=== PATIENT | female | born 1970 | race Caucasian/White ===

== ENCOUNTER 2017-11-25 01:21 | Emergency (ER) | payer OTHER ==
[~2017-11-25] VITALS: Ht 167.6 cm; Wt 102.5 kg
[2017-11-25 01:21] VITALS: BP 127/74
--- NOTE | 2017-11-25 01:51 | ED.ADGEN ---
Adult General [facility] HPI Patient is a 47 year old female who presents with right hand and thumb injury. 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 It required multiple staff members and security to restrain the patient for his own safety and the safety of staff. At some point during the restraint process, the patient sustained injury to the left hand and thumb. The incident was 24 hours earlier. Since then , she has had ongoing pain. The pain is primarily over the thenar eminence. Pain is worse with movement of the thumb, particularly with abduction. She has no numbness or tingling. She did not sustain additional injury. She has been taking Aleve at home for control of the symptoms. Review of Systems Review of Systems Constitutional: Denies fever or chills Respiratory: Denies cough or shortness of breath Cardiovascular: No additional information not addressed in HPI Musculoskeletal: as documented in HPI. No additional MSK complaints Integument: no break in skin Neurologic: Denies neuro complaints All other systems were reviewed and found to be within normal limits, except as documented in this note. Allergies Allergies Allergies Coded Allergies Type Severity Reaction Last Updated Verified No Known Drug Allergies 11/25/17 No Physical Exam Physical Exam Constitutional: Well developed, well nourished, no acute distress, non-toxic appearance HENT: Normocephalic, atraumatic, oropharynx moist Eyes: normal conjunctiva Neck: Normal range of motion Skin: Warm, dry, no abrasion Extremities: Gross deformity to the area in question. There is tenderness to palpation over the abductor muscles of the thumb. There is mild pain with abduction as well but the pain is worse with abduction. Abductor muscles are 5 over 5 motor strength. There is no loss of sensation distally. There are radial pulses. Capillary refill is less than 2 seconds. Neurologic: Alert and oriented X 3, normal motor function Psychologic: Affect normal EKG EKG [] Radiology/Procedures Radiology/Procedures No acute fracture seen Course & Med Decision Making Course & Med Decision Making Pertinent Labs and Imaging studies reviewed. (See chart for details) Patient is seen and examined in the ER as part of recommendations for work- related injury. Physical exam findings consistent with strain of the hand/thumb , particularly the intrinsic thenar eminence muscles. Tendinous injury is not entirely ruled out as this would require MRI. No loss of strength is appreciated however on exam. Plan today is to place in thumb spica splint for rest/healing. She is advised to take NSAID of her choice at home. Wear splint over the next 5-7 days. May remove as needed for ADL's. F/u with hospital's occupational health clinic in 7-10 days. Final Impression Final Impression Strain of Abductor muscles of thumb René Disclaimer Dragon Disclaimer This electronic medical record was generated, in whole or in part, using a voice recognition dictation system. LISS HERNANDEZ DO November 25, 2017 01:51
--- NOTE | 2017-11-25 07:49 | RAD ---
Left hand, 3 views, 11/25/2017: HISTORY: Injury No acute fracture or dislocation is identified. The soft tissues are unremarkable. IMPRESSION: No acute bony abnormality is detected. Electronically signed by: Robert Farfan MD (11/25/2017 7:46 AM) [facility]
== END 2017-11-25 01:45 | disposition home or self-care (01) ==
LOC: ER 01:21
DX: S56.311A Strain of extensor or abductor muscles, fascia and tendons of right thumb at forearm level, initial encounter (principal); W50.0XXA Accidental hit or strike by another person, initial encounter; Y93.89 Activity, other specified; Y99.0 Civilian activity done for income or pay; Y92.89 Other specified places as the place of occurrence of the external cause
CPT/HCPCS: 73130; 99284

== ENCOUNTER 2018-08-17 22:18 | Emergency (ER) | payer OTHER ==
[~2018-08-17] VITALS: Ht 167.6 cm; Wt 102.5 kg
[2018-08-17 22:20] VITALS: BP 121/82
--- NOTE | 2018-08-17 22:22 | ED.ADGEN ---
Past History Past Medical History: No Pertinent History Past Surgical History: No Surgical History Alcohol Use: Rarely Drug Use: None Adult General Chief Complaint Chief Complaint ".. I was coming around the car.. and I slipped on the ice... the snow removed vidhya helped me up and get into the Emergency room.. I kind hit my head on Lt... I did not go out... but still dizzy.. the main thing is this Rt. knee popped.. and twisted bad... 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 Pt. complaints of contusion Lt posterior scalp and twisting injury to Lt Knee. Pt. denies loss of consciousness. Complaints of nausea and dizzy. Patient is complaining of unable to bear weight without pain in right knee.. Patient is able to do straight leg lift. But obvious edema of right knee. Distal neurovascular right foot is equal to left foot. Patient does have crepitation with movement of right knee. Does have pain in collateral ligaments. In increase anterior draw as compared to left knee. Patient denies other injury at this time. Review of Systems Review of Systems Constitutional: Denies fever or chills [] Eyes: Denies change in visual acuity, redness, or eye pain [] HENT: Denies nasal congestion or sore throat [] complaints of head injury Respiratory: Denies cough or shortness of breath [] Cardiovascular: No additional information not addressed in HPI [] GI: Denies abdominal pain, nausea, vomiting, bloody stools or diarrhea [] : Denies dysuria or hematuria [] Musculoskeletal: Denies back pain or joint pain [] complaints of right knee pain Integument: Denies rash or skin lesions [] Neurologic: Denies headache, focal weakness or sensory changes [] Endocrine: Denies polyuria or polydipsia [] All other systems were reviewed and found to be within normal limits, except as documented in this note. Family History Family History Noncontributory to presentation Current Medications Current Medications Current Medications Medications (Trade) Dose Ordered Sig/Chaparro Start Time Stop Time Status Last Admin Dose Admin Acetaminophen (Tylenol) 1,000 mg 1X ONCE 08/17/18 23:00 08/17/18 23:01 DC 08/17/18 00:40 1,000 MG Lactated Ringer's 1,000 ml @ 1,000 mls/hr Q1H 08/17/18 22:37 08/17/18 23:36 DC Ondansetron HCl (Zofran) 8 mg 1X ONCE 08/17/18 23:15 08/17/18 23:16 DC 08/17/18 00:42 8 MG Allergies Allergies Allergies Coded Allergies Type Severity Reaction Last Updated Verified No Known Drug Allergies 11/25/17 No Physical Exam Physical Exam Constitutional: in acute distress, pale in appearance. [] HENT: Normocephalic, , bilateral external ears normal, oropharynx moist, no oral exudates, nose normal. Has contusion to posterior left scalp area. Eyes: PERRLA, EOMI, conjunctiva normal, no discharge. [] Neck: Normal range of motion, no tenderness, supple, no stridor. [] Cardiovascular:Heart rate regular rhythm, no murmur [] Lungs & Thorax: Bilateral breath sounds clear to auscultation [] Abdomen: Bowel sounds normal, soft, no tenderness, no masses, no pulsatile masses. [] Skin: Warm, dry, no erythema, no rash. [] Back: No tenderness, no CVA tenderness. [] Extremities: No tenderness, no cyanosis, no clubbing, ROM intact, no edema. [] Except findings in right knee. DTRs +2 left knee and brachial. Operations General Agent equal. Limited abiltiy to Ambulate due to pain.. Neurologic: Alert and oriented X 3, normal motor function, normal sensory function, no focal deficits noted. [] Psychologic: Affect anxious, judgement normal, mood depressed. Tearful. Current Patient Data Vital Signs Vital Signs Date Time Temp Pulse Resp B/P (MAP) Pulse Ox O2 Delivery O2 Flow Rate FiO2 08/17/18 22:20 97.6 86 16 96 Room Air Lab Results Laboratory Tests Test 08/17/18 23:59 08/18/18 00:15 White Blood Count 9.1 x10^3/uL (4.0-11.0) Red Blood Count 4.78 x10^6/uL (3.50-5.40) Hemoglobin 14.5 g/dL (12.0-15.5) Hematocrit 43.6 % (36.0-47.0) Mean Corpuscular Volume 91 fL (79-100) Mean Corpuscular Hemoglobin 30 pg (25-35) Mean Corpuscular Hemoglobin Concent 33 g/dL (31-37) Red Cell Distribution Width 13.4 % (11.5-14.5) Platelet Count 239 x10^3/uL (140-400) Neutrophils (%) (Auto) 76 % (31-73) H Lymphocytes (%) (Auto) 18 % (24-48) L Monocytes (%) (Auto) 5 % (0-9) Eosinophils (%) (Auto) 1 % (0-3) Basophils (%) (Auto) 1 % (0-3) Neutrophils # (Auto) 6.9 x10^3uL (1.8-7.7) Lymphocytes # (Auto) 1.7 x10^3/uL (1.0-4.8) Monocytes # (Auto) 0.4 x10^3/uL (0.0-1.1) Eosinophils # (Auto) 0.1 x10^3/uL (0.0-0.7) Basophils # (Auto) 0.1 x10^3/uL (0.0-0.2) Prothrombin Time 9.7 SEC (9.4-11.4) Prothrombin Time INR 1.0 (0.9-1.1) PTT 27 SEC (23-33) Sodium Level 141 mmol/L (136-145) Potassium Level 3.8 mmol/L (3.5-5.1) Chloride Level 104 mmol/L (98-107) Carbon Dioxide Level 24 mmol/L (21-32) Anion Gap 13 (6-14) Blood Urea Nitrogen 20 mg/dL (7-20) Creatinine 0.9 mg/dL (0.6-1.0) Estimated GFR (Cockcroft-Gault) 66.5 Glucose Level 88 mg/dL (70-99) Calcium Level 8.9 mg/dL (8.5-10.1) Total Bilirubin 0.4 mg/dL (0.2-1.0) Direct Bilirubin 0.1 mg/dL (0.0-0.2) Aspartate Amino Transferase (AST) 29 U/L (15-37) Alanine Aminotransferase (ALT) 38 U/L (14-59) Alkaline Phosphatase 112 U/L (46-116) Creatine Kinase 53 U/L (26-192) Troponin I Quantitative < 0.017 ng/mL (0-0.055) Total Protein 7.6 g/dL (6.4-8.2) Albumin 3.9 g/dL (3.4-5.0) Urine Collection Type Unknown Urine Color Yellow Urine Clarity Clear Urine pH 6.5 Urine Specific [place] 1.015 Urine Protein Neg (NEG-TRACE) Urine Glucose (UA) Neg mg/dL (NEG) Urine Ketones (Stick) Trace mg/dL (NEG) Urine Blood Neg (NEG) Urine Nitrite Neg (NEG) Urine Bilirubin Neg (NEG) Urine Urobilinogen Dipstick 0.2 mg/dL (0.2 mg/dL) Urine Leukocyte Esterase Neg (NEG) Urine RBC Occ /HPF (0-2) Urine WBC Occ /HPF (0-4) Urine Squamous Epithelial Cells Few /LPF Urine Bacteria Few /HPF (0-FEW) Urine Mucus Slight /LPF EKG EKG [] Radiology/Procedures Radiology/Procedures My interpretation of CT of head and neck shows no obvious shift, mass, edema, bleed, or fracture. No obvious fracture or disc or malalignment. My interpretation of chest x-ray shows no acute cardiopulmonary findings. My interpretation of right knee increased soft tissue edema. There may be a small fracture on proximal fibular head .[] Course & Med Decision Making Course & Med Decision Making Pertinent Labs and Imaging studies reviewed. (See chart for details) Ice, elevation, rest, Barry wrap, crutches, Tylenol and ibuprofen for pain. Follow -up primary care. No need follow-up orthopedics. Return if any emergent changes.. Head injury precautions given. [] Final Impression Final Impression 1. Head contusion 2. Right knee strain [] and suspect ligament and cartilage injury Dragon Disclaimer Dragon Disclaimer This electronic medical record was generated, in whole or in part, using a voice recognition dictation system. Dragon Disclaimer This chart was dictated in whole or in part using Voice Recognition software in a busy, high-work load, and often noisy Emergency Department environment. It may contain unintended and wholly unrecognized errors or omissions. Discharge Summary Visit Information Final Diagnosis Problems Medical Problems: (1) Head injury due to trauma Status: Acute (2) Head injury, acute, without loss of consciousness Status: Acute (3) Knee buckling Status: Acute (4) Knee cartilage, torn, right Status: Acute Brief Hospital Course Allergies Allergies Coded Allergies Type Severity Reaction Last Updated Verified No Known Drug Allergies 11/25/17 No Vital Signs Vital Signs Date Time Temp Pulse Resp B/P (MAP) Pulse Ox O2 Delivery O2 Flow Rate FiO2 08/17/18 22:20 97.6 86 16 96 Room Air Lab Results Laboratory Tests Test 08/17/18 23:59 08/18/18 00:15 White Blood Count 9.1 x10^3/uL (4.0-11.0) Red Blood Count 4.78 x10^6/uL (3.50-5.40) Hemoglobin 14.5 g/dL (12.0-15.5) Hematocrit 43.6 % (36.0-47.0) Mean Corpuscular Volume 91 fL (79-100) Mean Corpuscular Hemoglobin 30 pg (25-35) Mean Corpuscular Hemoglobin Concent 33 g/dL (31-37) Red Cell Distribution Width 13.4 % (11.5-14.5) Platelet Count 239 x10^3/uL (140-400) Neutrophils (%) (Auto) 76 % (31-73) Lymphocytes (%) (Auto) 18 % (24-48) Monocytes (%) (Auto) 5 % (0-9) Eosinophils (%) (Auto) 1 % (0-3) Basophils (%) (Auto) 1 % (0-3) Neutrophils # (Auto) 6.9 x10^3uL (1.8-7.7) Lymphocytes # (Auto) 1.7 x10^3/uL (1.0-4.8) Monocytes # (Auto) 0.4 x10^3/uL (0.0-1.1) Eosinophils # (Auto) 0.1 x10^3/uL (0.0-0.7) Basophils # (Auto) 0.1 x10^3/uL (0.0-0.2) Prothrombin Time 9.7 SEC (9.4-11.4) Prothromb Time International Ratio 1.0 (0.9-1.1) Activated Partial Thromboplast Time 27 SEC (23-33) Sodium Level 141 mmol/L (136-145) Potassium Level 3.8 mmol/L (3.5-5.1) Chloride Level 104 mmol/L (98-107) Carbon Dioxide Level 24 mmol/L (21-32) Anion Gap 13 (6-14) Blood Urea Nitrogen 20 mg/dL (7-20) Creatinine 0.9 mg/dL (0.6-1.0) Estimated GFR (Cockcroft-Gault) 66.5 Glucose Level 88 mg/dL (70-99) Calcium Level 8.9 mg/dL (8.5-10.1) Total Bilirubin 0.4 mg/dL (0.2-1.0) Direct Bilirubin 0.1 mg/dL (0.0-0.2) Aspartate Amino Transf (AST/SGOT) 29 U/L (15-37) Alanine Aminotransferase (ALT/SGPT) 38 U/L (14-59) Alkaline Phosphatase 112 U/L (46-116) Creatine Kinase 53 U/L (26-192) Troponin I Quantitative < 0.017 ng/mL (0-0.055) Total Protein 7.6 g/dL (6.4-8.2) Albumin 3.9 g/dL (3.4-5.0) Urine Collection Type Unknown Urine Color Yellow Urine Clarity Clear Urine pH 6.5 Urine Specific [place] 1.015 Urine Protein Neg (NEG-TRACE) Urine Glucose (UA) Neg mg/dL (NEG) Urine Ketones (Stick) Trace mg/dL (NEG) Urine Blood Neg (NEG) Urine Nitrite Neg (NEG) Urine Bilirubin Neg (NEG) Urine Urobilinogen Dipstick 0.2 mg/dL (0.2 mg/dL) Urine Leukocyte Esterase Neg (NEG) Urine RBC Occ /HPF (0-2) Urine WBC Occ /HPF (0-4) Urine Squamous Epithelial Cells Few /LPF Urine Bacteria Few /HPF (0-FEW) Urine Mucus Slight /LPF Brief Hospital Course 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 knee. To Follow up work comp. Discharge Information Condition at Discharge: Stable Disposition/Orders: D/C to Home Dischare Medications Current Medications Lactated Ringer's 1,000 ml @ 1,000 mls/hr Q1H IV ; Start 08/17/18 at 22:37; Stop 08/17/18 at 23:36; Status DC Acetaminophen (Tylenol) 1,000 mg 1X ONCE PO Last administered on 08/17/18at 00: 40; Admin Dose 1,000 MG; Start 08/17/18 at 23:00; Stop 08/17/18 at 23:01; Status DC Ondansetron HCl (Zofran) 8 mg 1X ONCE IV Last administered on 08/17/18at 00:42 ; Admin Dose 8 MG; Start 08/17/18 at 23:15; Stop 08/17/18 at 23:16; Status DC MARIELLE PARDO MD Aug 17, 2018 22:22
[2018-08-17] MEDS ORDERED: IV RINGERS SOLUTION,LACTATED 1,000 ML IV SCH (22:37)
[2018-08-17] MEDS ORDERED: ACETAMINOPHEN 500 MG TABLET PO ONE (23:00)
[2018-08-17] MEDS ORDERED: ONDANSETRON PF 4 MG/2 ML VIAL. IV ONE (23:15)
--- NOTE | 2018-08-17 23:39 | RAD ---
PQRS Compliance Statement: One or more of the following individualized dose reduction techniques were utilized for this examination: 1. Automated exposure control 2. Adjustment of the mA and/or kV according to patient size 3. Use of iterative reconstruction technique CT head and cervical spine without contrast 08/17/2018 10:59 PM INDICATION: Fall, hit left side of head on ice. Near-syncope. COMPARISON: None available TECHNIQUE: Multiple axial CT images of the head were obtained from skull base through the vertex without intravenous contrast. Multiple axial CT images of the cervical spine were obtained without intravenous contrast. Coronal and sagittal reformats are provided. FINDINGS: Head: Ventricles, sulci and basal cisterns are within normal limits. There is no hydrocephalus. Read-white matter differentiation is normal. There is no acute intracranial hemorrhage. There is no mass, mass effect or midline shift. Posterior fossa is normal in appearance. Visualized portions of the orbits are normal. Paranasal sinuses are well aerated. Mastoid air cells are well aerated. Scalp and calvaria are normal. Cervical spine: Alignment of the cervical spine is normal. Skull base is intact. Craniocervical junction is normal in appearance. Atlantoaxial articulation is normal. Vertebral body heights are maintained without evidence for acute fracture. Facet joints are within normal limits. Mild disc height loss is identified at C5-C6. No significant osseous neural foraminal stenosis. No significant osseous spinal canal stenosis. Transverse foramen are intact. There is no prevertebral soft tissue swelling. Thyroid gland is normal in appearance. Visualized portions of the lung apices are normal without evidence for suspicious pulmonary nodule or infiltrate. IMPRESSION: 1. No acute intracranial hemorrhage. 2. No acute fracture or malalignment of the cervical spine. Electronically signed by: Za Cuevas MD (08/17/2018 11:36 PM) [facility]
[2018-08-18 00:24] LABS: BASO # 0.1 x10^3/uL (0.0-0.2); BASO % 1 % (0-3); EOS # 0.1 x10^3/uL (0.0-0.7); EOS % 1 % (0-3); HEMATOCRIT 43.6 % (36.0-47.0); HEMOGLOBIN 14.5 g/dL (12.0-15.5); LYMPH # 1.7 x10^3/uL (1.0-4.8); LYMPH % 18 % (24-48); MEAN CORPUSCULAR HEMOGLOBIN 30 pg (25-35); MEAN CORPUSCULAR HGB CONC 33 g/dL (31-37); MEAN CORPUSCULAR VOLUME 91 fL (79-100); MONO # 0.4 x10^3/uL (0.0-1.1); MONO % 5 % (0-9); NEUT # 6.9 x10^3uL (1.8-7.7); NEUT % 76 % (31-73); PLATELET COUNT 239 x10^3/uL (140-400); RED BLOOD COUNT 4.78 x10^6/uL (3.50-5.40); RED CELL DISTRIBUTION WIDTH 13.4 % (11.5-14.5); WHITE BLOOD COUNT 9.1 x10^3/uL (4.0-11.0)
[2018-08-18 00:33] LABS: ALBUMIN 3.9 g/dL (3.4-5.0); CALCIUM 8.9 mg/dL (8.5-10.1); CREATININE 0.9 mg/dL (0.6-1.0); DIRECT BILIRUBIN 0.1 mg/dL (0.0-0.2); GFR 66.5; POTASSIUM 3.8 mmol/L (3.5-5.1); TOTAL BILIRUBIN 0.4 mg/dL (0.2-1.0); TOTAL PROTEIN 7.6 g/dL (6.4-8.2)
[2018-08-18 00:46] LABS: BACTERIA,URINE FEW /HPF (0-FEW); BILIRUBIN,URINE NEG (NEG); CLARITY,URINE CLEAR; COLOR,URINE YELLOW; GLUCOSE,URINE NEG (NEG); NITRITE,URINE NEG (NEG); RBC,URINE OCC /HPF (0-2); UROBILINOGEN,URINE 0.2 mg/dL (0.2 mg/dL); WBC,URINE OCC /HPF (0-4)
[2018-08-18 00:47] LABS: SQUAMOUS EPITHELIAL CELL,UR FEW /LPF
--- NOTE | 2018-08-18 08:06 | RAD ---
Right knee, 3 views, 08/17/2018: HISTORY: Fall, knee injury No acute fracture or dislocation is identified. No significant arthritic change is evident. There is suggestion of a small joint effusion. IMPRESSION: No acute bony abnormality is detected. Electronically signed by: Robert Farfan MD (08/18/2018 8:03 AM) [facility]
--- NOTE | 2018-08-18 08:06 | RAD ---
Portable chest, 08/17/2018: HISTORY: Fall, nausea, near syncope The heart size is normal. The lungs are clear. There is no evidence of pleural fluid. IMPRESSION: No acute cardiopulmonary abnormality is detected. Electronically signed by: Robert Farfan MD (08/18/2018 8:04 AM) [facility]
--- NOTE | 2018-08-18 11:37 | EKG ---
[address] [address] Test Date: 2018-08-17 Test Time: 23:24:21 Pat Name: ROCHELLE DE LA CRUZ Department: Room: Gender: F [employer]: : [id number] Requested By: MARIELLE PARDO Order Number: [id number] Reading MD: Measurements Intervals [place] Rate: 83 P: 24 MS: 178 QRS: -6 QRSD: 76 T: 37 QT: 376 QTc: 448 Interpretive Statements SINUS RHYTHM LEFTWARD AXIS NO SPECIFIC ECG ABNORMALITIES RI6.01 No previous ECG available for comparison
== END 2018-08-18 02:25 | disposition home or self-care (01) ==
LOC: ER 22:18
DX: S83.91XA Sprain of unspecified site of right knee, initial encounter (principal); S86.811A Strain of other muscle(s) and tendon(s) at lower leg level, right leg, initial encounter; S00.03XA Contusion of scalp, initial encounter; M25.361 Other instability, right knee; R42 Dizziness and giddiness; R55 Syncope and collapse; W00.0XXA Fall on same level due to ice and snow, initial encounter; Y93.89 Activity, other specified; Y92.89 Other specified places as the place of occurrence of the external cause; Y99.8 Other external cause status
CPT/HCPCS: 36415; 70450; 71045; 72125; 73564; 80048; 80076; 81001; 82550; 84484; 85025; 85610; 85730; 93005; 96374; 99284; J2405

== ENCOUNTER 2020-01-06 11:25 | Emergency (ER) | payer OTHER ==
[~2020-01-06] VITALS: Ht 167.6 cm; Wt 100.0 kg
[2020-01-06 11:38] VITALS: BP 122/67
[2020-01-06] MEDS ORDERED: TRIA15OI9 TP (11:53)
--- NOTE | 2020-01-06 11:53 | PHYS DOC ---
Past History Past Medical History: No Pertinent History Past Surgical History: Other Alcohol Use: None Drug Use: None General Adult EDM: Chief Complaint: SKIN PROBLEM HPI: HPI: Patient is a 49-year-old female who presented to ER today for evaluation of poison kathleen all over her body. Patient says [place], she got poison kathleen on her left forearm. The rash then spread to her neck, her chest. Patient was seen in the ER here 4 days ago, was prescribed prednisone p.o. But she denies any better. Review of Systems: Review of Systems: Constitutional: Denies fever or chills Eyes: Denies change in visual acuity HENT: Denies nasal congestion or sore throat Respiratory: Denies cough or shortness of breath Cardiovascular: Denies chest pain or edema GI: Denies abdominal pain, nausea, vomiting, bloody stools or diarrhea : Denies dysuria Musculoskeletal: Denies back pain or joint pain Integument: Positive for itchy rash on body Neurologic: Denies headache, focal weakness or sensory changes Endocrine: Denies polyuria or polydipsia Lymphatic: Denies swollen glands Psychiatric: Denies depression or anxiety Heart Score: Risk Factors: Risk Factors: DM, Current or recent (<one month) smoker, HTN, HLP, family history of CAD, obesity. Risk Scores: Score 0 - 3: 2.5% MACE over next 6 weeks - Discharge Home Score 4 - 6: 20.3% MACE over next 6 weeks - Admit for Clinical Observation Score 7 - 10: 72.7% MACE over next 6 weeks - Early Invasive Strategies Allergies: Allergies: Allergies Coded Allergies Type Severity Reaction Last Updated Verified No Known Drug Allergies 11/25/17 No Physical Exam: PE: Constitutional: Well developed, well nourished, no acute distress, non-toxic appearance. [] HENT: Normocephalic, atraumatic, bilateral external ears normal, oropharynx moist, no oral exudates, nose normal. [] Eyes: PERRLA, EOMI, conjunctiva normal, no discharge. [] Neck: Normal range of motion, no tenderness, supple, no stridor. [] Cardiovascular:Heart rate regular rhythm, no murmur [] Lungs & Thorax: Bilateral breath sounds clear to auscultation [] Abdomen: Bowel sounds normal, soft, no tenderness, no masses, no pulsatile masses. [] Skin: Warm, dry, weeping, blistering rash on left forearm and neck and trunk area. [] Back: No tenderness, no CVA tenderness. [] Extremities: No tenderness, no cyanosis, no clubbing, ROM intact, no edema. [] Neurologic: Alert and oriented X 3, normal motor function, normal sensory function, no focal deficits noted. [] Psychologic: Affect normal, judgement normal, mood normal. [] Current Patient Data: Vital Signs: Vital Signs Date Time Temp Pulse Resp B/P (MAP) Pulse Ox O2 Delivery O2 Flow Rate FiO2 01/06/20 11:38 98.0 76 16 122/67 (85) 96 Room Air EKG: EKG: [] Radiology/Procedures: Radiology/Procedures: [] Course & Med Decision Making: Course & Med Decision Making Pertinent Labs and Imaging studies reviewed. (See chart for details) [] Dragon Disclaimer: [employer] Disclaimer: This electronic medical record was generated, in whole or in part, using a voice recognition dictation system. Departure Departure: Impression: Primary Impression: Poison kathleen dermatitis Disposition: HOME/RESIDENCE PRIOR TO ADM Condition: STABLE Referrals: BERNADETTE HOWARD (PCP) follow up with your doctor next week Patient Instructions: Poison Kathleen Additional Instructions: Thank you for visiting our Emergency Department. We appreciate you trusting us with your care. If any additional problems come up don't hesitate to return to visit us. Please follow up with your primary care provider so they can plan additional care if needed and know about the problem that you had. If symptoms worsen come back to the Emergency Department. Any concerning symptoms that start such as chest pain, shortness of air, weakness or numbness on one side of the body, running high fevers or any other concerning symptoms return to the ER. Scripts Triamcinolone Acetonide (TRIAMCINOLONE ACETONIDE 0.5% OINT) 15 Gm Oint...g. 1 ANNA TP BID for poison kathleen, #60 GM 2 Refills apply to affected area(s) Prov: BABAK COPPOLA DO 01/06/20 Justification of Admission: Justification of Admission: Justification of Admission Dx: N/A BABAK COPPOLA DO Jan 06, 2020 11:53
[2020-01-06] MEDS ORDERED: methylPREDNISolone SOD SUCC PF 125 MG/2 ML VIAL. IM ONE (12:00)
== END 2020-01-06 12:09 | disposition home or self-care (01) ==
LOC: ER 11:25
DX: L23.7 Allergic contact dermatitis due to plants, except food (principal)
CPT/HCPCS: 96372; 99283; J2930

== ENCOUNTER → 2020-02-29 | Outpatient (CLI) | payer OTHER ==
[~2020-02-29] MED LIST: TRIA15OI9 TP
== END | disposition home or self-care (01) ==
LOC: LAB 09:50
PROVIDERS: ATTEND Internal Medicine Cardiovascular Disease
DX: Z20.828 Contact with and (suspected) exposure to other viral communicable diseases (principal)
CPT/HCPCS: U0003-CS

== ENCOUNTER 2020-07-02 06:34 | Emergency (ER) | payer OTHER ==
[~2020-07-02] VITALS: Ht 166.4 cm; Wt 91.8 kg
--- NOTE | 2020-07-02 07:30 | PHYS DOC ---
Past History Past Medical History: No Pertinent History Past Surgical History: Other Alcohol Use: None Drug Use: None General Adult EDM: Chief Complaint: KNEE INJURY HPI: HPI: Patient is a 50-year-old female coming in for right knee pain and swelling since yesterday. Patient was walking on ice when it slid and she felt her knee twist back and forth multiple times but did not fall. Has had increasing pain. Has a history of prior fall and injury to that knee 2 years ago, resulted in arthro scoping and removal of bone fragments. Also had a meniscal injury at that time. Patient states she had felt a pop and has had a few more pops with walking. No other injuries, otherwise has been well. Review of Systems: Review of Systems: All other systems within normal limits except for as noted in the HPI Allergies: Allergies: Allergies Coded Allergies Type Severity Reaction Last Updated Verified No Known Drug Allergies 07/02/20 No Physical Exam: PE: Constitutional: Well developed, well nourished, no acute distress, non-toxic appearance. [] HENT: Normocephalic, atraumatic, bilateral external ears normal, nose normal. [] Eyes: PERRLA, conjunctiva normal, no discharge. [] Neck: No rigidity, supple, no stridor. [] Cardiovascular: Regular rate and rhythm, brisk cap refill [] Lungs & Thorax: Non labored symmetric respirations, no tachypnea or respiratory distress [] Abdomen: Soft, nondistended. Skin: Warm, dry, no erythema, no rash. [] Back: No tenderness, no CVA tenderness. [] Extremities: No deformities, range of motion grossly intact, no lower extremity edema, joint line tenderness, mild effusion of right knee [] Neurologic: Alert and oriented X 3, no focal deficits noted. [] Psychologic: Affect normal, judgement normal, mood normal. [] EKG: EKG: [] Radiology/Procedures: Radiology/Procedures: Right knee 3 views INDICATION: Twisting injury FINDINGS: AP, oblique and lateral views of the right knee showing tiny ossific density superficial to the lateral femoral condyle on the oblique view that is equivocal for small avulsion fracture off the lateral femoral condyle. The alignment is anatomic. Underlying degenerative changes with osteophytic spurring, subchondral sclerosis and joint space are most conspicuous in the lateral compartment as well as to a lesser extent in the patellofemoral compartment. IMPRESSION: Possible avulsion fracture of the lateral femoral condyle and underlying degen erative changes in the lateral and patellofemoral compartments right knee. Consider CT or MRI in further evaluation if clinically warranted. [] Heart Score: Risk Factors: Risk Factors: DM, Current or recent (<one month) smoker, HTN, HLP, family history of CAD, obesity. Risk Scores: Score 0 - 3: 2.5% MACE over next 6 weeks - Discharge Home Score 4 - 6: 20.3% MACE over next 6 weeks - Admit for Clinical Observation Score 7 - 10: 72.7% MACE over next 6 weeks - Early Invasive Strategies Course & Med Decision Making: Course & Med Decision Making Pertinent Labs and Imaging studies reviewed. (See chart for details) [] Dragon Disclaimer: Dragon Disclaimer: This electronic medical record was generated, in whole or in part, using a voice recognition dictation system. Departure Departure: Impression: Primary Impression: Avulsion injury of right knee region Disposition: 01 DC HOME SELF CARE/HOMELESS Condition: STABLE Referrals: BERNADETTE HOWARD (PCP) Patient Instructions: RICE - Routine Care for Injuries Additional Instructions: Continue to wear knee brace whenever mobile and follow-up with orthopedics JIMMY HOOD MD Jul 02, 2020 07:30
--- NOTE | 2020-07-02 07:46 | RAD ---
Right knee 3 views INDICATION: Twisting injury FINDINGS: AP, oblique and lateral views of the right knee showing tiny ossific density superficial to the later al femoral condyle on the oblique view that is equivocal for small avulsion fracture off the lateral femoral condyle. The alignment is anatomic. Underlying degenerative changes with osteophytic spurring , subchondral sclerosis and joint space are most conspicuous in the lateral compartment as well as to a lesser extent in the patellofemoral compartment. IMPRESSION: Possible avulsion fracture of the lateral femoral condyle and underlying degenerative changes in the lateral and patellofemoral compartments right knee. Consider CT or MRI in further evaluation if clini jarrett warranted. Electronically signed by: Lynn Manrique MD (07/02/2020 7:43 AM) [id number]
[2020-07-02 08:55] VITALS: BP 124/58
== END 2020-07-02 08:55 | disposition home or self-care (01) ==
LOC: ER 06:34
DX: S81.001A Unspecified open wound, right knee, initial encounter (principal); X50.9XXA Other and unspecified overexertion or strenuous movements or postures, initial encounter; Y93.01 Activity, walking, marching and hiking; Y92.89 Other specified places as the place of occurrence of the external cause; Y99.8 Other external cause status
CPT/HCPCS: 73562; 99283

== ENCOUNTER 2020-07-24 01:10 | Emergency (ER) | payer OTHER ==
[~2020-07-24] VITALS: Ht 166.4 cm; Wt 94.5 kg
[2020-07-24 01:10] VITALS: BP 140/75
--- NOTE | 2020-07-24 01:27 | PHYS DOC ---
Past History Past Medical History: No Pertinent History Past Surgical History: Other Additional Past Surgical Histo: RIGHT KNEE Smoking: Non-smoker Alcohol Use: None Drug Use: None General Adult EDM: Chief Complaint: FOOT INJURY PAIN HPI: HPI: 50-year-old female presents with 1 week history of left foot pain. Patient reports she was at work and accidentally stepped down on the wheel of a workstation on wheels (WOW) and felt a sudden pop in her left foot. Patient reports some pain with ambulation. Patient reports she has noticed some in creased swelling to the lateral aspect of her foot as well as significant tenderness when she is not in a shoe. Reports concern for possible fracture. Denies numbness or tingling. Denies other injury. Review of Systems: Review of Systems: Constitutional: Denies fever or chills Musculoskeletal: Reports left foot pain Integument: Reports swelling of left foot Neurologic: Denies headache, focal weakness or sensory changes Complete systems were reviewed and found to be within normal limits, except as documented in this note. Allergies: Allergies: Allergies Coded Allergies Type Severity Reaction Last Updated Verified No Known Drug Allergies 07/02/20 No Physical Exam: PE: Constitutional: Well developed, well nourished, no acute distress, non-toxic appearance HENT: Normocephalic, atraumatic Eyes: Conjunctiva normal, no discharge Neck: Normal range of motion, no tenderness, supple Lungs & Thorax: No respiratory distress, equal chest rise and fall Skin: Warm, dry, left lateral foot dorsal swelling Extremities: Left fifth metatarsal tenderness, ROM intact, left DP and PT +2 Neurologic: Alert and oriented X 3, no focal deficits noted Psychologic: Affect normal, judgment normal EKG: EKG: [] Radiology/Procedures: Radiology/Procedures: PROCEDURE: FOOT LEFT 3V LEFT FOOT AP LATERAL OBLIQUE Clinical Indication: Reason: pain s/p fall. lateral foot pain Comparison: None. Findings: There is no acute fracture or dislocation. There is mild joint space narrowing of the first MTP. Mineralization is normal. No bony erosion. There is moderate inferior calcaneal bone spur. There is no soft tissue abnormality. IMPRESSION: No acute fracture. Electronically signed by: Micha Scott MD (07/24/2020 2:27 AM) [facility] Course & Med Decision Making: Course & Med Decision Making Pertinent Imaging studies reviewed. (See chart for details) Patient presents with 1 week history of left foot pain with concern for possible injury. X-ray obtained without acute fracture/dislocation. Patient stable for discharge with outpatient follow-up with PCP. Discussed findings and plan with patient, who acknowledges understanding and agreement. René Disclaimer: René Disclaimer: This electronic medical record was generated, in whole or in part, using a voice recognition dictation system. Departure Departure: Impression: Primary Impression: Sprain of left foot Qualified Codes: S93.602A - Unspecified sprain of left foot, initial encounter Disposition: 01 DC HOME SELF CARE/HOMELESS Condition: STABLE Referrals: BERNADETTE HOWARD (PCP) Patient Instructions: Foot Sprain, RICE - Routine Care for Injuries, Ea sy-to-Read MARY CARMEN APARICIO DO Jul 24, 2020 01:27
--- NOTE | 2020-07-24 02:29 | RAD ---
LEFT FOOT AP LATERAL OBLIQUE Clinical Indication: Reason: pain s/p fall. lateral foot pain Comparison: None. Findings: There is no acute fracture or dislocation. There is mild joint space narrowing of the first MTP. Mine ralization is normal. No bony erosion. There is moderate inferior calcaneal bone spur. There is no soft tissue abnormality. IMPRESSION: No acute fracture. Electronically signed by: Micha Scott MD (07/24/2020 2:27 AM) [id number]
== END 2020-07-24 01:30 | disposition home or self-care (01) ==
LOC: ER 01:10
DX: S93.602A Unspecified sprain of left foot, initial encounter (principal); X50.9XXA Other and unspecified overexertion or strenuous movements or postures, initial encounter; Y93.89 Activity, other specified; Y92.89 Other specified places as the place of occurrence of the external cause; Y99.8 Other external cause status
CPT/HCPCS: 73630; 99283

== ENCOUNTER → 2021-01-25 | Outpatient (CLI) | payer OTHER | LOC: EDSTATUS 13:01 → LAB 22:53 → ER 22:53 | PROVIDERS: ATTEND Internal Medicine Cardiovascular Disease | DX: R05 Cough (principal); R11.2 Nausea with vomiting, unspecified; R19.7 Diarrhea, unspecified; Z20.828 Contact with and (suspected) exposure to other viral communicable diseases | CPT/HCPCS: 99283; C9803; U0003 ==